=== PATIENT | female | born 2005 | race Caucasian/White ===

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

== ENCOUNTER 2024-04-05 16:45 | Emergency (ER) | payer OTHER, SELFPAY ==
--- NOTE | 2024-04-05 16:46 | ED.SKABFB ---
HPI - Skin/Abscess/Foreign Bdy General Chief complaint: Skin/Abscess/Foreign Body Stated complaint: rash Time Seen by Provider: 04/05/24 16:46 Source: patient Mode of arrival: ambulatory Limitations: no limitations History of Present Illness HPI narrative: Patient is a 18-year-old female who presents with 2 weeks of rash. Started as skill a patch under right breast and has since spread to abdomen arms and legs. States putting hydrocortisone cream on the rash makes it or itchy and worse. Reports having a dog with skin issues that sleeps with her. Dog is not currently on medication. Denies any fever, chills, nausea, vomiting, diarrhea, shortness of breath. Related Data Allergies Allergy/AdvReac Type Severity Reaction Status Date / Time No Known Allergies Allergy Unverified 08/19/14 20:39 Review of Systems Review of Systems: All systems reviewed & are unremarkable except as noted in HPI and below Constitutional: Constitutional: Denies body ache(s), Denies chills, Denies fatigue, Denies fever(s), Denies headache(s), Denies malaise and Denies weakness Eyes: Eyes: Denies blurry vision, Denies irritation and Denies loss of vision ENT: Denies otalgia, Denies headache(s), Denies nasal discharge, Denies sinus pain and Denies sore throat Cardiovascular: Cardiovascular: Denies chest pain, Denies irregular heart rhythm and Denies dyspnea Respiratory: Respiratory: Denies dyspnea Gastrointestinal: Gastrointestinal: Denies abdominal pain, Denies melena, Denies hematochezia, Denies diarrhea, Denies nausea and Denies vomiting Musculoskeletal: Musculoskeletal: Denies back pain, Denies myalgias and Denies arthralgias Integumentary/Breasts: Skin/Breast: Reports pruritus and Reports rash Neurologic: Denies headache(s), Denies loss of vision and Denies weakness Psychiatric: Psychiatric: Reports no additional psychiatric complaints Endocrine: Endocrine: Denies fatigue PMFSH Past Medical History Medical History Asthma Social History Social History Living arrangements: with family Comments At time of signature, agree with nursing past medical, surgical, social and family history. There is no relevant family history pertinent to the presenting complaint. Exam Const: General: cooperative, healthy appearing, comfortable, no acute distress and well nourished Nutritional Appearance: well nourished Orientation/consciousness: patient oriented x3 Limitations: no limitations HENMT: Head: normal to inspection, normocephalic and atraumatic Ears: hearing grossly normal bilaterally and external ears normal Face/Nose/Sinus: Normal external nose present, normal facial exam and face symmetric Face and sinus: normal facial exam and face symmetric Mouth: Yes lip normal Eyes: General: appearance normal, both eyes and all related structures Alignment and Position: alignment normal and position normal Periorbital: periorbital findings normal Eyelids: eyelids normal Pupils: Equal, round and reactive pupils present EOM: EOMs intact bilaterally Neck: Neck: normal visual inspection, full ROM and supple Chest: Chest palpation & inspection: normal inspection of the chest Resp: Effort & Inspection: normal respiratory effort and able to speak in complete sentences Auscultation: clear to auscultation bilaterally Cardio: Rate: regular rate Rhythm: regular rhythm Heart sounds: S1 normal heart sound present and S2 normal heart sound present GI: Inspection: normal to inspection Skin: General skin exam: normal color and no rashes or lesions noted Rashes: rashes noted macules diffuse full body size (under breast (3x2 cm), rest of body 1 cm patches), borders sharp and raised and surface scaly Neuro: General: patient oriented x3 and moves all extremities Cranial nerves: Yes Equal, round and reactive pupils present Speech: normal speech Gai
[2024-04-05 16:51] VITALS: BP 144/82; PULSE 101; RESP 16; TEMP 37; O2SAT 100
== END 2024-04-05 17:19 | disposition home or self-care (01) ==
PROVIDERS: Emergency Provider Nurse Practitioner Family; Referring Provider Emergency Medicine
DX: B35.4 Tinea corporis (principal); J45.909 Unspecified asthma, uncomplicated
CPT/HCPCS: 99213; G0463

== ENCOUNTER 2025-07-04 13:21 | Emergency (ER) | payer OTHER, SELFPAY ==
--- NOTE | 2025-07-04 13:26 | ED_ITS ---
HPI - Nausea/Vomiting/Diarrhea General Chief complaint: Nausea/Vomiting/Diarrhea Stated complaint: Vomiting / Fever Time Seen by Provider: 07/04/25 13:26 Source: patient Mode of arrival: ambulatory Limitations: no limitations History of Present Illness HPI Narrative: 20-year-old female presents with complaint of nausea and vomiting since 1:00 a.m.. No abdominal pain. Able to keep down water. Has not had vomiting episodes since early this morning. Afebrile. 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 Patient needs work note. Unknown if . Last period was in April. All systems reviewed and negative except as noted above. Related Data Home Medications ?Medication ?Instructions ?Recorded ?Confirmed ?Last Taken ?Type vit no.95-ferrous tablet PO 07/04/25 Unknown History fumarate 28 mg-folic acid 800 mcg tablet () Allergies Allergy/AdvReac Type Severity Reaction Status Date / Time No Known Allergies Allergy Verified 07/04/25 13:25 [facility] Past Medical History Medical History Asthma Social History Social History Living arrangements: with family Comments At time of signature, agree with nursing past medical, surgical, social and family history. There is no relevant family history pertinent to the presenting complaint. Exam Narrative: GENERAL: This is a well-nourished, well-developed patient, in no apparent distress. HEAD: normocephalic, atraumatic. EYES: PERRL. Sclera clear/white. Vision is grossly intact. EARS: External ears normal NOSE: External nose normal NECK: Neck supple, non-tender without lymphadenopathy, masses or thyromegaly. CARDIOVASCULAR: Regular rate and rhythm without murmurs, gallops, or rubs. RESPIRATORY: Clear to auscultation. Breath sounds equal bilaterally. No wheezes, rales, or rhonchi. GASTROINTESTINAL: Abdomen soft, non-tender, nondistended. Bowel sounds are active. No hepato-splenomegaly, or palpable masses. No guarding. SKIN: warm, Dry, intact with no suspicious lesions or rash, good texture and turgor. NEURO: awake, alert, and oriented to person, place and time. There were no obvious focal neurologic abnormalities. EXTREMITIES: No joint tenderness, effusion, or edema noted. Course Course Level of Care: Express Care Visit Vital Signs Vital signs: Vital Signs Temperature 36.6 C 07/04/25 13:27 Pulse Rate 91 07/04/25 13:27 Respiratory Rate 14 07/04/25 13:27 Blood Pressure 124/83 07/04/25 13:27 Pulse Oximetry 100 07/04/25 13:27 Oxygen Delivery Room Air 07/04/25 13:27 Temperature 36.6 C 07/04/25 13:27 Pulse Rate 91 07/04/25 13:27 Respiratory Rate 14 07/04/25 13:27 Blood Pressure 124/83 07/04/25 13:27 Pulse Oximetry 100 07/04/25 13:27 Oxygen Delivery Room Air 07/04/25 13:27 Reviewed MDM - Nausea/Vomiting/Diarrhea MDM Narrative Medical decision making narrative: negative COVID and influenza testing. test negative. Discussed results with patient. Patient is well-appearing, nontoxic. No abdominal tenderness on exam. Has not had any episodes of vomiting since this morning. Is able to keep down water. Will prescribe Zofran if needed. Patient here for work note Differential Diagnosis Differential diagnosis: Likely food poisoning and gastroenteritis Lab Data Labs: Lab Results 07/04/25 07/04/25 Range/Units 13:41 13:47 POC Urine HCG, Qual Negative (Negative) POC Influenza A Ag Pending POC Influenza B Ag Pending POC SARS CoV-2 Ag Pending Discharge Plan Discharge Clinical Impression: Viral gastroenteritis Patient Disposition: Home Condition: Stable Instructions: Gastroenteritis (ED) Additional Instructions: your COVID and influenza test were negative. Your test was negative. take medication as prescribed. Drink at least 64 oz water a day. Follow-up with your primary care physician if symptoms are not improving. If you have severe abdominal pain go to the ER. Patient Language: [place] Irish Prescriptions: New ondansetron 4 mg tablet,disintegrating 4 mg PO Q8H PRN (Reason: nausea and vomiting) Qty: 12 0RF No Action PNV no.95-ferrous fumarate-FA [] 28 mg iron- 800 mcg tablet PO Follow-up/Referrals: PHYSICIAN,EARLY CHILDHOOD SERVICES COORDINATOR [Primary Care Provider, Internal Medicine] Stand Alone Forms: Work/School Release IP Time of Disposition: 13:47
[2025-07-04 13:27] VITALS: BP 124/83; PULSE 91; RESP 14; TEMP 36.6; O2SAT 100
[2025-07-04 13:45] LABS: BEDSIDEPREGUCG Negative (Negative)
[2025-07-04 13:54] LABS: EDCOVIDSCREEN Negative (Negative); EDINFLUASCREEN Negative (Negative); EDINFLUBSCREEN Negative (Negative)
--- OUTSIDE RECORDS SUMMARY | 2025-07-04 15:50 | XMS_ITS | Clinical Summary ---
Author Organization [facility] Address [facility] [place] [address] Care Team Providers Care Radiologic Therapist Name Role Phone Unavailable Primary Care Provider Unavailabl e Social History Tobacco Use Types Packs/Day Years Used Date Smoking Tobacco: Never Assessed Comments Unknown Sex and Gender Information Value Date Recorded Sex Assigned at Not on file Legal Sex Female 8:22 PM CDT Gender Identity Not on file Sexual Orientation Not on file Plan of Treatment Health Maintenance Due Date Last Done Comments Cervical Cancer Screening Pa p Smear (Age 21 to 29) Every 3 Years 2004 Cervical Cancer Screening 2004 Annual Physical 2007 HPV Vaccines (1 - 3-dose series) 2019 Meningococcal B Vaccine (1 o f 2 - Standard) 2020 Hepatitis C 2022 DTaP, Tdap and Td Vaccines ( 1 - Tdap) 2023 Hepatitis B Vaccines (1 of 3 - 19+ 3-dose series) 2023 COVID-19 Vaccine (1 - 2023-2 5 season) 2025 Meningococcal Vaccine Aged Out No lukas bear eligible based on patient's age to complete this topic Pneumococcal Vaccine: Pediat rics (0 to 5 Years) and At-Risk Patients (6 to 49 Years) Aged Out No longer eligible b ased on patient's age to complete this topic RSV Immunizations Under 20 Months Aged Out No longer eligible based on patient's age to complete this topic
--- OUTSIDE RECORDS SUMMARY | 2025-07-04 15:50 | XMS_ITS | Clinical Summary ---
Author Organization [facility] Address [address] [place] [address] Care Team Providers Care Tin Whiz Machine Operator Name Role Phone Keyonna Hess MD Primary Care Provider [phone] Source Comments [facility],non-owned Affiliates and Associated Physician Practices is amultiple site organization consisting of ambulatory clinics and hospital sitesin [place], [place], [place] and [place]. This disclosure is being madepursuant to the Care Everywhere program and may not contain all information available regarding this patient. Last updated 18.[facility] Allergies No known active allergies Medications * Be aware that medications may not be up to date on this document. Alwaysverify current medications with the patient. SUMAtriptan (IMITREX) 25 MG tablet TAKE 1 TABLET BY MOUTH AT FIRST SIGN OF MIGRAINE, MAY REPEAT ONCE AFTER 2 HOURS IF NEEDED 9 tablet 9 Active Additional Information Patient taking differently: PRN, Reported on 10/02/2022 albuterol HFA (Proventil; Ventolin; Proair) 108 (90 Base) MCG/ACT inhaler Inhale 2 (two) puffs by mouth every 4 hours as needed No further refills until seen by physician 18 g 3 Active montelukast (Singulair) 10 MG tablet Take 1 (one) tablet by mouth once daily 90 Each 3 3 Active fluticasone hfa 44 (Flovent HFA 44) 44 MCG/ACT inhaler Inhale 2 (two) puffs by mouth 2 times daily 31.8 g 2 3 Active loratadine (Claritin) 10 MG tablet TAKE 1 TABLET BY MOUTH EVERY DAY 90 tablet 1 3 Active fluticasone hfa 44 (Flovent HFA 44) 44 MCG/ACT inhaler INHALE 2 PUFFS BY MOUTH TWICE DAILY 10.6 g 3 Active Active Problems Problem Noted Date Diagnosed Date History of herpes labialis 04/28/2021 Anxiety and depression 04/28/2021 Abnormal weight loss 04/14/2020 Acne vulgaris 09/01/2017 Overview (04/21/2018): Onset age 10, S/P tretinoin, then 2 mo doxy 09/01/17 moderate mixed acne on face, chest, back, upper arms; Rx tretinoin, Benzamycin, inc doxy to 100mg BID menarche age; acne does not flare with menses 11/24/17 no change using tretinoin, clinda QOD without xerosis and taking doxy 100 mg BID; plan to taper off doxy to 50 mg BID, start Cheryl, increase strength of tretinoin; options discussed with mom including isotretinoin 04/17/18 improved, continue taper off doxy to 20 mg BID, continue Cheryl, tretinoin, BP, clinda gel Dad with Factor V AlbertTre lomax does not have the condition - tested negative as an Asthma, intermittent 04/30/2010 Resolved Problems Problem Noted Date Diagnosed Date Resolved Date ALEXIS (obstructive sleep apnea) 11/25/2015 04/28/2021 Overview (11/25/2015): Mod to severe ALEXIS diag psg 11/20/15 SUMMARY RDI Min SaO2 10.3 81.0% AHI: 10.0 Obstructive AHI: 9.5 Left knee pain 09/21/2015 04/28/2021 BMI (body mass index), pedia tric, 85% to less than 95% for age 1008/01/2014 04/28/2021 Herpes labialis 03/26/2012 04/28/2021 Hypertrophy of tonsils and adenoids 04/28/2021 Salivary mucocele or ranula 04/28/2021 Immunizations Immunization Administration Dates Next Due INFLUENZA VACCINE, TRIV. (AF LURIA FLUZONE TRIVALENT; 6MO+) (IIV3) 10/02/2012,08/01/2011 DTAP/IPV 04/30/2010 DTaP VACCINE IM (6wk-6yrs) 01/02/2006,,2004,08/27 FLU VACCINE TRI IIV3 SPLIT I M (FLUVIRIN) 07/16/2021 FLU VACCINE TRI IIV3 SPLIT P F IM (FLUVIRIN) 09/09/2013 HEP A PEDS 2 DOSE 07/02/2007,07/01/2006 HEP B VACCINE, PED/ADOL 01/02/2006,10/29,2004,06/27 HIB BOOSTER 10/03/2005, 5,2004,08/27 Human Papilloma Virus Sheryl valent Vaccine 10/23/2015,06/22/2015,03/24/2015 INFLUENZA VACCINE 09/06/2008,09/19/2005,08/14/20 05 INFLUENZA VACCINE, CELL CULT URE, QUADR. (FLUCELVAX QUADRIVALENT; 6MO+) (CCIIV4) 09/04/2022 INFLUENZA VACCINE, QUADR. (F LUZONE; FLULAVAL; FLUARIX; AFLURIA QUADRIVALENT; 6MO+), 0.5 ML (IIV4) 07/19/2019,08/14/2018,07/17/2017,10/03,09/11/2015,08/01/2014 MENINGOCOCCAL ACWY (MCV4P) VAC IM 02/01/2021, MMR 04/30/2010,06/28/2005 PNEUMOCOCCAL CONJ, PEDS 06/28/2005,12/27,2004,08/27 POLIO IPV 2004,2004,2004 TDAP (7yrs+) 04/11/2016 VARICELLA 09/06/2008,10/03/2005 Family History Medical History Relation Name Comments Anesthesia Reaction Neg Hx Social History Tobacco Use Types Packs/Day Years Used Date Smoking Tobacco: Never Smokeless Tobacco: Never Tobacco Cessation:Counseling Given: Not Answered Alcohol Use Standard Drinks/Week Comments No 0 (1 standard drink = 0.6 oz pur e alcohol) PHQ-2 Answer Date Recorded PHQ2 TOTAL SCORE 1 02/19/2023 Comments No Sex and Gender Information Value Date Recorded Sex Assigned at Not on file Legal Sex Female 9:12 AM CDT Gender Identity Not on file Sexual Orientation Not on file Last Filed Vital Signs Vital Sign Reading Time Taken Comments Blood Pressure 110/72 02/19/2023 8:30 AM CDT Pulse 88 01/14/2023 2:28 PM CDT Temperature 37.1 C (98.7 F) 02/19/2023 8:30 AM CDT Respiratory Rate 14 01/03/2020 3:45 PM CDT Oxygen Saturation 97% 01/03/2020 3:45 PM CDT Inhaled Oxygen Concentration 100% 01/03/2020 3 :10 PM CDT Weight 53.5 kg (118 lb) 02/19/2023 8:30 AM CDT Height 160 cm (5' 3) 01/14/2023 2:28 PM CDT Body Mass Index 20.9 01/14/2023 2:28 PM CDT Plan of Treatment Health Maintenance Due Date Last Done Comments PNEUMOCOCCAL VACCINE (1 of 1 - PPSV23, PCV20, or PCV21) 2010 06/28/2005, 2004, 2004, Additional history exists HIV SCREENING 2019 CHLAMYDIA/GONORRHEA SCREENING 2020 MENINGOCOCCAL (Group B) VACC INE SHARED DECISION-MAKING (1 of 2 - Standard) 2020 HEPATITIS C SCREENING 06/23/2022 DEPRESSION SCREENING 10/20/2024 02/19/2023, 01/14/2023, 11/29/2022, Additional history exists COVID-19 VACCINE (2024-2 6 season) 2025 04/11/2022, 06/18/2021, 05/28/2021 INFLUENZA VACCINE (#1) 2025 , 07/16/2021, 07/19/2019, Additional history exists PAP SMEAR 2025 DTAP/TDAP/TD VACCINES (7 - T d or Tdap) 04/11/2026 04/11/2016, 04/30/2010, 01/02/2006, Additional history exists ZOSTER VACCINE (1 of 2) 2054 HIB VACCINE Completed 10/03/2005, 12/18, 2004, Additional history exists HEPATITIS B VACCINE Completed 01/02/2006, 2004, 2004, Additional history exists HPV VACCINE Completed 10/23/2015, 12/2014, 03/24/2015 MENINGOCOCCAL GROUPS A/C/Y/W VACCINE Completed 02/01/2021, 04/11/2016 Goals Goal Patient Goal Type Associated Problems Recent Progress Patient-Stated? Author Exercise 3X per week (30 min per time) Exercise On track( 020 11:06 AM CDT) No Keyonna Hess MD Note: Caring for Your Overweight Child Get Moving: It is recommended that children and teens get physical activity for at least 1 hour per day on most (or better yet, all) days of the week. That may sound like a lot, especially if your child is not getting any physical activity now. But physical activity means more than exercise. It can mean playing games in the backyard, or washing the car. It can mean picking up leaves, or walking the dog. Add the healthy habit of physical activity to your family s schedule. When children take off weight through dieting alone, 80 percent of the loss is from fatty tissue and 20 percent is from muscle. Adding weight-resistance training to an exercise routine preserves the muscle tissue. Virtually every ounce dropped comes from fat. Once an adolescent meets her goal, regular exercise is essential for maintaining the desired weight. Where can I go for more information? [place] [employer] ( ) www.aap.org HealthyChildren.org www.healthychildren.org U.S. Department of Health and Human Services www.hhs.gov Website and free downloadable patrick for smartphones: http://www.[employer]/ Use safety retraint in car Lifestyle On track( 020 11:06 AM CDT) Nica Reyes RN Insurance [facility] * Guarantor: TRE VIEIRA Account Type Relation to Patient Date of Phone Billing Address Personal/Family [address] [place] [id number] Care Teams Tin Whiz Machine Operator Relationship Specialty Start Date End Date Keyonna Hess MD PCP - General 02/02/24
--- OUTSIDE RECORDS SUMMARY | 2025-07-04 15:50 | XMS_ITS | Encounter Summary ---
Author Organization [facility] Address [address] [place] [address] Care Team Providers Care Magnetic Prospecting Supervisor Name Role Phone Keyonna Hess MD Primary Care Provider [phone] Keyonna Hess MD Primary Care Provider [phone] Keyonna Hess MD Unavailable [phone] Keyonna Hess MD Unavailable [phone] Keyonna Hess MD Primary Care Provider [phone] Encounter Details Date Type Department Care Team (Late st Contact Info) Description 02/22/2014 [facility] Outpatient Visit CG DEFAULT [address] [place] [address] Unknown, Provider Social History Tobacco Use Types Packs/Day Years Used Date Smoking Tobacco: Never Assessed Comments Unknown Sex and Gender Information Value Date Recorded Sex Assigned at Not on file Legal Sex Female 9:12 AM CDT Gender Identity Not on file Sexual Orientation Not on file documented as of this encounter Plan of Treatment Not on file documented as of this encounter Visit Diagnoses Not on filedocumented in this encounter Care Teams Magnetic Prospecting Supervisor Relationship Specialty Start Date End Date Keyonna Hess MD PCP - General Pediatrics 04/19/14 06/09/17 Keyonna Hess MD PCP - General Pediatrics 06/10/17 12/29/23 Keyonna Hess MD PCP - Pediatrics 12/01/09 12/29/23 Keyonna Hess MD PCP - General 02/02/24 Keyonna Hess MD Pediatrics 06/10/17 12/29/23 documented as of this encounter
== END 2025-07-04 13:49 | disposition home or self-care (01) ==
PROVIDERS: Emergency Provider Nurse Practitioner Family
DX: A08.4 Viral intestinal infection, unspecified (principal); Z20.822 Contact with and (suspected) exposure to COVID-19; J45.909 Unspecified asthma, uncomplicated
CPT/HCPCS: 81025; 87426; 87804; 99213; G0463